=== PATIENT | male | born 1950 | race Native Hawaiian/Other Pacific Islander ===

== ENCOUNTER 2016-04-05 21:25 | Emergency (ER) | payer OTHER ==
[~2016-04-05] VITALS: Ht 177.8 cm; Wt 97.5 kg
[2016-04-05 22:01] LABS: PLATELET COUNT 209 K/uL (142-355)
[2016-04-05 22:10] LABS: POTASSIUM 3.8 mmol/L (3.6-5.2)
[2016-04-05 23:15] VITALS: BP 122/86; TEMP 98.4
== END 2016-04-05 23:15 | disposition home or self-care (01) ==
LOC: ED 21:25
DX: R42 Dizziness and giddiness (principal)
CPT/HCPCS: 36415; 80053; 85027; 96360; 99284